=== PATIENT | male | born 1960 | race Caucasian/White ===

== ENCOUNTER → 2017-02-25 | Outpatient (CLI) | payer OTHER ==
[~2017-02-25] MED LIST: ACETAMINOPHEN325 MG PO; ALBUTEROL17 GM INH; ALTACE10 M1 PO; AMITRIPTYLINE H25 MG PO; AMLODIPINE BESY10 MG PO; ASPIRIN81 M1 PO; BYSTOLIC10 MG PO; BYSTOLIC20 MG PO; FENOFIBRATE160 MG PO; FLOMAX0.4 M1 PO; HCTZ PO; K-DUR10 MEQ PO; LASIX PO; LOW DOSE ASPIRI81 M2 PO; MONTELUKAST SOD10 MG PO; NEXIUM PO; PRAVACHOL20 MG PO; PREDNISONE PO; PRINIVIL40 MG PO; SYMBICORT INH; VITAL-D RX TABL1 TAB PO; ZOLOFT50 MG PO; ZYRTEC PO
--- NOTE | ~2017-02-25 | CR63 ---
[facility] A Service of [facility] & [facility] RADIOLOGY TEXT RESULTS PATIENT: JOEY SANON RAY LOCATION: [facility]AT : 62 UNIT #: [id number] AGE: [address]: Esdras Simmons MD SEX: M ORDER DR: [id number] [facility] [address] [place], [place] [address] [id number] O MR#: [id number] Acc #: [id number] NAME: JOEY SANON : 1960 SEX: M STUDY DATE/TIME: 02/25/2017 10:58 UNIT: [facility] ROOM: STUDY DESCRIPTION: CR Chest 2 View Attending Physician: Esdras Simmons M.D. Referring Physician: Esdras Simmosn M.D. Ordering Physician: Esdras Simmons M.D. Primary Care Physician: Hunter Olea D.O. MEDICAL IMAGING REPORT This report is preliminary unless electronic signature is present EXAM Chest, 2 views; 02/25/2017, 1058 hours. CLINICAL HISTORY 56-year-old man complaining of 3-day history of shortness of air with exertion. History of kidney cancer and asthma, hypertension. COMPARISON 02/28/2016 FINDINGS Upright PA and lateral views of the chest demonstrate normal cardiac, mediastinal and hilar contours. The lungs are well expanded and clear. There is no effusion or pneumothorax. IMPRESSION No acute cardiopulmonary findings. No change November 28, 2015. Dictated by... Taylor Montenegro M.D. THIS IS AN ELECTRONICALLY VERIFIED REPORT Taylor Montenegro M.D. at 02/26/2017 12:32 PM SHERRI/yunior TD: 02/25/2017 23:13 JOB #: [id number] MEDICAL IMAGING REPORT Page 1 of 1 COPY
--- NOTE | ~2017-02-25 | CT3 ---
[facility] A Service of [facility] & [facility] RADIOLOGY TEXT RESULTS PATIENT: JOEY SANON LOCATION: [facility] : 62 UNIT #: [id number] AGE: [address]: Esdras Simmons MD SEX: M ORDER DR: [id number] [facility] [address] [place], [place] [address] [id number] O MR#: [id number] Acc #: [id number] NAME: JOEY SANON : 1960 SEX: M STUDY DATE/TIME: 02/25/2017 10:35 UNIT: [facility] ROOM: STUDY DESCRIPTION: CT Abd and Pelv WWo Cont Attending Physician: Esdras Simmons M.D. Referring Physician: Esdras Simmons M.D. Ordering Physician: Esdras Simmons M.D. Primary Care Physician: Hunter Olea D.O. MEDICAL IMAGING REPORT This report is preliminary unless electronic signature is present EXAM CT abdomen and pelvis without and with contrast, renal mass protocol. Date: 02/25/2017 HISTORY History of left renal cancer with partial nephrectomy approximate 5 years ago. No current complaints. Observation metastatic disease. Restaging. COMPARISON CT abdomen and pelvis without contrast 02/28/2016. PROCEDURE Precontrast imaging was obtained through the abdomen and pelvis. Dynamic postcontrast imaging was obtained through the abdomen, and postcontrast imaging was extended through the pelvis. Enteric contrast was not administered. Sagittal and coronal reformed images were obtained. This CT exam was performed with one or more of the following radiation dose reduction techniques: automatic exposure control, adjustment of mA and/or kV according to patient size, and iterative reconstruction. FINDINGS Partial nephrectomy changes involving the left lower renal pole are redemonstrated. No suspicious enhancing renal mass is seen on either side. There are 2 low-density lesions within the right kidney measuring approximate 8 mm in the upper pole and approximately 1 cm in the lower pole. Within the left kidney, a single low density lesion is seen in the upper pole measuring 1 cm. These are compatible with cysts, and appear unchanged from 02/27/2017. [facility] A Service of [facility] & [facility] RADIOLOGY TEXT RESULTS PATIENT: JOEY SANON LOCATION: [facility] : 62 UNIT #: [id number] AGE: [address]: Esdras Simmons MD SEX: M ORDER DR: On noncontrast imaging, there is no indication of renal or ureteral stone. No hydronephrosis or hydroureter is identified. No pathologically enlarged lymph nodes are identified. There is no ascites. On delayed excretory phase imaging, no suspicious filling defects are seen within the renal collecting systems or the imaged portions of the ureters. Lung bases are clear. Benign calcified granuloma in the right lower lobe. The liver, gallbladder, spleen, pancreas, adrenals are normal. Appendix is normal. Diverticular changes are present within the colon. Pelvis findings: Urinary bladder, prostate rectum are normal. No pelvic adenopathy or free fluid. Review of bone windows demonstrates no suspicious osteolytic or osteoblastic abnormalities. IMPRESSION 1. Stable partial left nephrectomy. 2. No evidence of recurrent or metastatic disease in the abdomen or pelvis 3. Bilateral renal cyst. 4. Uncomplicated colonic diverticulosis. Dictated by... Joy Cornell M.D. THIS IS AN ELECTRONICALLY VERIFIED REPORT Joy Cornell M.D. at 03/02/2017 3:26 PM Darius TD: 02/26/2017 02:26 JOB #: [id number] MEDICAL IMAGING REPORT Page 1 of 1 COPY
[2017-02-25 08:51] LABS: HEMATOCRIT 37.4 % (38.0-50.0); HEMOGLOBIN 12.8 gm/dL (13.0-16.0); MEAN CELL VOLUME 82.8 FL (83-96); MEAN CORPUSCULAR HEMOGLOBIN 28.4 PG (28-34); MEAN CORPUSCULAR HGB CONC 34.2 g/dL (30-36); MEAN PLATELET VOLUME 7.3 FL (6.5-11.5); RED BLOOD COUNT 4.52 X10e (3.90-5.60); RED CELL DISTRIBUTION WIDTH 13.2 % (11.0-15.5)
[2017-02-25 09:55] LABS: PROSTATE SPECIFIC AG SCR 0.82 ng/ml (0.0-4.0)
[2017-02-25 10:12] LABS: ALBUMIN SERUM 3.8 g/dL (3.5-5.0); BILIRUBIN,TOTAL 0.7 mg/dL (0.2-2.0); BUN/CREATININE RATIO 10.83; CALCIUM SERUM 8.9 mg/dL (8.4-10.2); CREATININE SERUM 1.2 mg/dL (0.6-1.4); GLOM FILT RATE Estimated 67.7 mL/min (>60); POTASSIUM 3.7 mmol/L (3.5-5.1); PROTEIN TOTAL SERUM 6.8 g/dL (6.0-8.3)
== END | disposition home or self-care (01) ==
LOC: CCAT 08:16
PROVIDERS: Urology
DX: Z08 Encounter for follow-up examination after completed treatment for malignant neoplasm (principal); N20.0 Calculus of kidney; K57.30 Diverticulosis of large intestine without perforation or abscess without bleeding; Z90.5 Acquired absence of kidney
CPT/HCPCS: 36415; 71020; 74178; 80053; 85027; G0103; Q9967